=== PATIENT | male | born 1985 | race Caucasian/White ===

== ENCOUNTER → 2019-03-20 | Day surgery (SDC) | payer OTHER ==
[~2019-03-20] MED LIST: ASPIRIN 325 MG TABLET PO PRN; DIAZEPAM 5 MG TABLET PO PRN; DIPHENHYDRAMINE HCL 25 MG CAPSULE PO PRN; FENTANYL CITRATE INJ/PF 100 MCG/2 ML AMPUL ONE; HEPARIN SOD (PORCINE) 1,000 UNIT/ML 10 ML VIAL ONE; HEPARIN SODIUM,PORCINE/NS/PF 2,000 UNIT/1,000 ML RTUINJ IV ONE; LIDOCAINE 1% INJ-PF (10 MG/ML) 30 ML SDV ONE; MIDAZOLAM 2 MG/2 ML INJ ONE; RADIAL COCKTAIL SYRINGE 10 ML IV PRN
--- NOTE | 2019-03-20 09:58 | Operative Report ---
Operative Report DATE OF SURGERY: 03/20/19 PREOPERATIVE DIAGNOSIS: Medically refractory chest pain POSTOPERATIVE DIAGNOSIS: Atypical chest pain palpitations OPERATION: Left heart catheterization coronary angiography left ventriculography SURGEON: KIP LUONG ANESTHESIA: Moderate Sedation COMPLICATIONS: None PROCEDURE: After informed consent was obtained the patient was brought to the cardiac catheterization lab and the right wrist was prepared in usual sterile and draped manner. Hemodynamic access was gained using micropuncture technique and the patient was anticoagulated with heparin. An intra-arterial cocktail of verapamil and lidocaine was administered. Selective coronary angiography was performed with a Cozad catheter. This was exchanged with pigtail catheter and left ventriculography was performed in standard HAM[place]TON projection. The patient left the Cardiac Catheterization Lab in stable condition, with intact distal pulses and no chest pain or other complications from the procedure. Conscious sedation was initiated, monitored, and maintained during the procedure with the start time of 846 and a completion time of 912 for a total procedure t baljinder of 26 minutes. A total of 4 milligrams of Versed and 100 milligrams and fentanyl were used for conscious sedation. HEMODYNAMIC DATA: Aortic pressure to begin the case is 112/72 post ventriculogr aphy LV pressure is 113/13 aortic pressure on pullback is 111/69 there is no gradient across the aortic valve CORONARY ANATOMY: [] ANGIOGRAPHY: [] VENTRICULOGRAPHY: Ventriculography is performed in the HAMILTON projection and demonstrates [normal left ventricular function with an ejection fraction by area length method at 65%] . CORONARY ANGIOGRAPHY: [] LEFT MAIN: [Normal] LEFT ANTERIOR DESCENDING: [The LAD is transapical gives rise to a diagonal these vessels are normal] CIRCUMFLEX CORONARY: [Normal anatomy] RIGHT CORONARY ARTERY: Dominant right coronary artery which is normal IMPRESSION: [1. Space normal left ventricular function 2. No evidence of valvular heart disease 3. Normal epicardial coronaries 4. Enhanced cardiac sensitivity to PVCs and extrasystoles Recommendations: Risk factor modification medical therapy]
[2019-03-20 11:53] VITALS: BP 120/79
== END ==
LOC: CCL 06:48
PROVIDERS: ATTEND Internal Medicine Cardiovascular Disease
DX: R07.9 Chest pain, unspecified (principal); R00.2 Palpitations; Z79.899 Other long term (current) drug therapy; Z86.39 Personal history of other endocrine, nutritional and metabolic disease; Z86.79 Personal history of other diseases of the circulatory system; Z87.891 Personal history of nicotine dependence
CPT/HCPCS: 93458; J2250; J3010; J1644 ×2; J3490 ×4

== ENCOUNTER → 2019-11-26 | Day surgery (SDC) | payer OTHER ==
--- NOTE | 2019-11-26 16:07 | RADIOLOGY REPORT (SQ) ---
EXAM DESCRIPTION: MRI CERVICAL SPINE WITHOUT COMPLETED DATE/TIME: 11/26/2019 1:25 pm REASON FOR STUDY: M47.817 SPONDYLS W/O MYELOPATHY OR RADICULOPATHY, LUMBOSACR REGION M47.817 SPONDY LS W/O MYELOPATHY OR RADICULOPATHY, LUMBOSACR M25.611 STIFFNESS OF RIGHT SHOULDER, NOT ELSEWHERE CL ASSIFIE COMPARISON: None. TECHNIQUE: Sagittal and Axial imaging includes T1, T2, STIR and gradient echo sequences. LIMITATIONS: None. FINDINGS: ALIGNMENT: Normal. VERTEBRAE: Intact. BONE MARROW: Normal. No marrow replacement or reactive changes. DISCS: Normal. No significant abnormal signal or loss of height. HARDWARE: None in the spine. CORD AND BASE OF BRAIN: Normal in size and signal intensity. SOFT TISSUES: No soft tissue masses. C1-C2: No significant spinal stenosis. C2-C3: No significant spinal stenosis or exit foraminal stenosis. C3-C4: No significant spinal stenosis or exit foraminal stenosis. C4-C5: No significant spinal stenosis or exit foraminal stenosis. C5-C6: No significant spinal stenosis or exit foraminal stenosis. C6-C7: Small central protrusion without cord impingement or stenosis. C7-T1: Small central protrusion without cord impingement or stenosis. UPPER THORACIC: Incompletely imaged. No significant spinal stenosis or exit foraminal stenosis. OTHER: No other significant finding. IMPRESSION: 1. Small disc hernias at C6-7 and C7-T1 but no evidence of cord compression or significant spinal torey nosis. TECHNICAL DOCUMENTATION: JOB ID: [id number] [employer]- All Rights Reserved Reading location - IP/workstation name: [email or web address]
--- NOTE | 2019-11-26 16:11 | RADIOLOGY REPORT (SQ) ---
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 FLUOROSCOPY TIME: 0.2 minutes. 1 images saved to PACS. LIMITATIONS: None. PROCEDURE: Procedure, risks, benefits and alternatives explained to patient who then gave written co nsent. The right shoulder was marked and a time out was called for correct procedure verification. P osterior entry site marked using fluoroscopic guidance. Shoulder prepped and draped using sterile te chnique. Local anesthesia achieved using 1% lidocaine injection. Hypodermic needle introduced into the joint space under direct fluoroscopic visualization. Non-ionic contrast instilled to confirm intr a-articular position. Dilute gadolinium solution then injected. Needle removed and entry site covere d with sterile bandage. No immediate complications noted. TECHNIQUE: Digital images acquired during fluoroscopy and stored on PACS. Patient immediately take n to the MR suite for additional imaging. INJECTION LOCATION: Posterior right shoulder. CONTRAST TYPE AND AMOUNT: 1 mL Omnipaque and 10 mL Dotarem/Saline mixture. IMPRESSION: SUCCESSFUL NEEDLE PLACEMENT AND INJECTION FOR RIGHT SHOULDER MR ARTHROGRAM USING POSTERI OR APPROACH. COMMENT: Quality ID 145: Final reports for procedures using fluoroscopy that document radiation exp osure indices, or exposure time and number of fluorographic images (if radiation exposure indices are not available) TECHNICAL DOCUMENTATION: JOB ID: [id number] [employer]- All Rights Reserved Reading location - IP/workstation name: [email or web address]
--- NOTE | 2019-11-26 16:11 | RADIOLOGY REPORT (SQ) ---
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 FLUOROSCOPY TIME: 0.2 minutes. 1 images saved to PACS. LIMITATIONS: None. PROCEDURE: Procedure, risks, benefits and alternatives explained to patient who then gave written co nsent. The right shoulder was marked and a time out was called for correct procedure verification. P osterior entry site marked using fluoroscopic guidance. Shoulder prepped and draped using sterile te chnique. Local anesthesia achieved using 1% lidocaine injection. Hypodermic needle introduced into the joint space under direct fluoroscopic visualization. Non-ionic contrast instilled to confirm intr a-articular position. Dilute gadolinium solution then injected. Needle removed and entry site covere d with sterile bandage. No immediate complications noted. TECHNIQUE: Digital images acquired during fluoroscopy and stored on PACS. Patient immediately take n to the MR suite for additional imaging. INJECTION LOCATION: Posterior right shoulder. CONTRAST TYPE AND AMOUNT: 1 mL Omnipaque and 10 mL Dotarem/Saline mixture. IMPRESSION: SUCCESSFUL NEEDLE PLACEMENT AND INJECTION FOR RIGHT SHOULDER MR ARTHROGRAM USING POSTERI OR APPROACH. COMMENT: Quality ID [id number]: Final reports for procedures using fluoroscopy that document radiation exp osure indices, or exposure time and number of fluorographic images (if radiation exposure indices are not available) TECHNICAL DOCUMENTATION: JOB ID: [id number] [employer]- All Rights Reserved Reading location - IP/workstation name: [email or web address]
--- NOTE | 2019-11-26 20:48 | RADIOLOGY REPORT (SQ) ---
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 TECHNIQUE: Right shoulder images acquired and stored on PACS. Oblique coronal, oblique sagittal, and axial imaging to include fat sensitive sequences as T1, water sensitive sequences as FST2/STIR, and contrast sensitive sequences as FST1. LIMITATIONS: Generally mild -moderate motion artifact. FINDINGS: JOINT DISTENTION: Adequate. No loose bodies. BONE MARROW AND CORTEX: Normal. AC JOINT: No bulky overgrowth. Mild dorsal degenerative hypertrophy without subacromial narrowing. GLENOHUMERAL JOINT: No overt subluxation or dislocation. No focal chondral lesions are suggested. ROTATOR CUFF: Irregular high-grade supraspinatus partial tear. Scant bursal surface fibers remain in tact. Partial tear extends into the infraspinatus. Subscapularis intact. No cuff muscle atrophy. LABRUM AND BICEPS LABRAL COMPLEX: Suspect type 2 tear. Motion artifact limits. Biceps tendon withou t tear or displacement. INFERIOR LABRAL COMPLEX: Generally intact without tear. ADJACENT SOFT TISSUES: No evidence of mass or adenopathy. OTHER: No other significant finding. IMPRESSION: 1. Near full-thickness tear of the supraspinatus insertion. 2. Superior labral tear. Biceps tendon intact. TECHNICAL DOCUMENTATION: JOB ID: [id number] [employer]- All Rights Reserved Reading location - IP/workstation name: [email or web address]
== END ==
LOC: RAD 12:39
PROVIDERS: ATTEND Orthopaedic Surgery
DX: M47.817 Spondylosis without myelopathy or radiculopathy, lumbosacral region (principal); M25.611 Stiffness of right shoulder, not elsewhere classified
CPT/HCPCS: 23350; 72141; 77002